=== PATIENT | female | born 1985 | race Caucasian/White ===

== ENCOUNTER 2017-03-25 07:49 | Inpatient (IN) | payer MEDICARE, MEDICAID ==
[2017-03-25] MEDS ORDERED: Buffered Lidocaine 0.9% SYRIN* 5 ML/SYR SYRINGE ONE (08:18)
[2017-03-25 09:54] LABS: Hematocrit 36 % (35-47); Hemoglobin 12.2 g/dl (12.0-16.0); Mean Corpuscular HGB Conc 34 g/dl (31-36); Mean Corpuscular Hemoglobin 31 pg (27-31); Mean Corpuscular Volume 90 fL (80-97); Mean Platelet Volume 10 um3 (7.4-10.4); Red Blood Count 3.99 10^6/ul (4.0-5.4); Red Cell Distribution Width 15 % (10.5-15); White Blood Count 11.8 10^3/ul (3.5-10.8)
[2017-03-25] MEDS ORDERED: OBEPIDURAL* 250 ML ONE (10:09)
[2017-03-25] MEDS ORDERED: Phenylephrine IV* 40 MCG/ML 10 ML SYRINGE IV PUSH PRN ×2 (11:56)
[2017-03-25] MEDS ORDERED: Sodium Citrate/Citric Acid* 15 ML UDC PO PRN (11:56)
[2017-03-25] MEDS ORDERED: Famotidine TAB* 20 MG PO PRN (11:56)
[2017-03-25] MEDS ORDERED: EPHEDrine (Pressors)* 50 MG/ML VIAL IV PUSH PRN ×2 (11:56)
[2017-03-25] MEDS ORDERED: OBEPIDURAL* 250 ML EPIDURAL SCH (12:00)
[2017-03-25 13:04] LABS: Benzodiazepine Urine Screen None Detected (None Detect)
[2017-03-25] MEDS ORDERED: Oxytocin in LR* 20 UNITS/1,000 ML BAG IVPB ONE (14:04)
[2017-03-25] MEDS ORDERED: Acetaminophen TAB* 325 MG PO PRN (14:49)
[2017-03-25] MEDS ORDERED: Dibucaine 1% 28.35 GM TUBE PR PRN (14:49)
[2017-03-25] MEDS ORDERED: Witch Hazel PAD* JAR TOPICAL PRN (14:49)
[2017-03-25] MEDS ORDERED: Glycerin ADULT SUPP PR PRN (14:49)
[2017-03-25] MEDS ORDERED: Ibuprofen TAB* 600 MG PO PRN (14:49)
[2017-03-25] MEDS ORDERED: Oxytocin in LR* 20 UNITS/1,000 ML BAG IVPB SCH (15:00)
[2017-03-25] MEDS ORDERED: Simethicone TAB* 80 MG TAB.CHEW PO SCH (17:30)
[2017-03-25] MEDS: Montelukast Sodium TAB* 10 MG PO SCH ×2 (20:38→21:17)
[2017-03-25] MEDS: Docusate CAP* 100 MG PO SCH (20:38)
[2017-03-25] MEDS: Mometasone/Formoter 200/5 MDI INH SCH (21:17)
[2017-03-26 07:45] LABS: Hematocrit 32 % (35-47); Hemoglobin 10.9 g/dl (12.0-16.0); Mean Corpuscular HGB Conc 34 g/dl (31-36); Mean Corpuscular Hemoglobin 31 pg (27-31); Mean Corpuscular Volume 90 fL (80-97); Mean Platelet Volume 9 um3 (7.4-10.4); Red Blood Count 3.55 10^6/ul (4.0-5.4); Red Cell Distribution Width 15 % (10.5-15); White Blood Count 9.5 10^3/ul (3.5-10.8)
[2017-03-26] MEDS: Montelukast Sodium TAB* 10 MG PO SCH ×2 (08:51→22:33)
[2017-03-26] MEDS: Docusate CAP* 100 MG PO SCH ×3 (08:51→22:33)
[2017-03-26] MEDS: Ferrous Gluconate TAB* 324 MG TAB PO SCH ×2 (09:00→22:34)
[2017-03-26] MEDS: Mometasone/Formoter 200/5 MDI INH SCH (14:40)
[2017-03-27 08:37] VITALS: BP 120/69
[2017-03-27] MEDS: Docusate CAP* 100 MG PO SCH (09:05)
[2017-03-27] MEDS: Montelukast Sodium TAB* 10 MG PO SCH (09:05)
== END 2017-03-27 16:56 | disposition home or self-care (01) | DRG 775 ==
LOC: MCHOBOUT 07:49 → MCHOB 08:12
PROVIDERS: ADMIT Obstetrics & Gynecology; ATTEND Obstetrics & Gynecology
PROC: 10E0XZZ Delivery of Products of Conception, External Approach (ICD-10-PCS; principal; 2017-03-25)
PROC: 0KQM0ZZ Repair Perineum Muscle, Open Approach (ICD-10-PCS; 2017-03-25)
PROC: 10907ZC Drainage of Amniotic Fluid, Therapeutic from Products of Conception, Via Natural or Artificial Opening (ICD-10-PCS; 2017-03-25)
PROC: 4A1HXCZ Monitoring of Products of Conception, Cardiac Rate, External Approach (ICD-10-PCS; 2017-03-25)
PROC: 10H073Z Insertion of Monitoring Electrode into Products of Conception, Via Natural or Artificial Opening (ICD-10-PCS; 2017-03-25)
PROC: 4A1H7CZ Monitoring of Products of Conception, Cardiac Rate, Via Natural or Artificial Opening (ICD-10-PCS; 2017-03-25)
DX: O48.0 Post-term pregnancy (principal); J45.909 Unspecified asthma, uncomplicated; Z37.0 Single live birth; Z3A.41 41 weeks gestation of pregnancy; O99.824 Streptococcus B carrier state complicating childbirth; O99.52 Diseases of the respiratory system complicating childbirth; Z88.1 Allergy status to other antibiotic agents; O69.1XX0 Labor and delivery complicated by cord around neck, with compression, not applicable or unspecified; O70.1 Second degree perineal laceration during delivery; O76 Abnormality in fetal heart rate and rhythm complicating labor and delivery
CPT/HCPCS: 36415; 80307; 82947; 85025; 86850; 86900; 86901; 99213; A9270-GY; G0463; J2540

== ENCOUNTER 2017-04-06 21:26 | Emergency (ER) | payer MEDICAID, MEDICARE ==
[2017-04-06] MEDS ORDERED: Albuterol/Ipratropium NEB.SOL* Albuterol 2.5 MG/Ipratropium 0.5 MG 3 ML INH ONE ×4 (22:17→22:58)
[2017-04-06] MEDS ORDERED: predniSONE TAB* 20 MG PO ONE ×2 (22:58)
--- NOTE | 2017-04-07 01:03 | ED ---
Dioni Sy Thomas, scribed for Moris Betancourt MD on 04/06/17 at 2302 . Shortness of Breath - HPI Summary HPI Summary: The pt is a 31 y/o F with a Hx of asthma presenting to the ED c/o SOB that began today at 12:00. The SOB is aggravated and alleviated by nothing. The patient has treated the SOB with her inhaler and nebulizer at home, which did relieve SOB somewhat. Pt additionally c/o clear rhinorrhea. Pt denies fevers, chills, and ankle swelling. The patient gave 12 days ago and she is accompanied by her mother and child. Her last asthma exacerbation was 2-3 years ago. She does not need to use her inhaler daily, but her she did use it yesterday. She has not taken prednisone for prior asthma exacerbations. She is breast-feeding. - History of Current Complaint Chief Complaint: EDShortnessOfBreath Time Seen by Provider: 04/06/17 22:17 Hx Obtained From: Patient, Family/Panel Monitor - pt's mother and pt's child are in the room Onset/Duration: Lasting Hours - onset today at 12:00, Still Present Timing: Constant Current Severity: Mild Associated Signs & Symptoms: Negative - Negative except for clear rhinorrhea - Allergy/Home Medications Allergies/Adverse Reactions: Allergies Allergy/AdvReac Type Severity Reaction Status Date / Time Clindamycin Allergy Severe See Comment Verified 04/06/17 21:34 Moxifloxacin [From Avelox] Allergy Severe Rash Verified 04/06/17 21:34 PMH/Surg Hx/FS Hx/Imm Hx Previously Healthy: No Endocrine/Hematology History: Denies: Hx Anticoagulant Therapy, Hx Diabetes, Hx Thyroid Disease Cardiovascular History: Denies: Hx Hypertension - family hx of Respiratory History: Reports: Hx Asthma - Allergies/asthma, Hx Pneumonia, Hx Seasonal Allergies Denies: Hx Chronic Obstructive Pulmonary Disease (COPD) GI History: Denies: Hx Ulcer Musculoskeletal History: Reports: Hx Arthritis - left hand Sensory History: Reports: Hx Contacts or Glasses Opthamlomology History: Reports: Hx Contacts or Glasses Neurological History: Reports: Hx Headaches Denies: Hx Migraine, Hx Nerve Disease, Hx Seizures Psychiatric History: Reports: Hx Attention Deficit Hyperactivity Disorder, Hx Bipolar Disorder - Cancer History Hx Chemotherapy: No Hx Radiation Therapy: No Hx Palliative Cancer Treatment: No - Surgical History Surgery Procedure, Year, and Place: S/p cholecystectomy, 2004, [facility] in [place] Hx Anesthesia Reactions: No Infectious Disease History: No Infectious Disease History: Denies: Hx Clostridium Difficile, Hx Hepatitis, Hx Human Immunodeficiency Virus (HIV), Hx of Known/Suspected MRSA, Hx Shingles, Hx Tuberculosis, Hx Known/ Suspected VRE, Hx Known/Suspected VRSA, History Other Infectious Disease, Traveled Outside the in Last 30 Days - Family History Known Family History: Positive: Other - Asthma - Social History Alcohol Use: None Hx Substance Use: No Substance Use Type: Reports: None Substance Use Comment - Amount & Last Used: frequently Hx Tobacco Use: No Smoking Status (MU): Never Smoked Tobacco Review of Systems Negative: Fever, Chills Positive: Nasal Discharge - clear Positive: Shortness Of Breath - onset today at 12:00 Negative: Other - NEGATIVE: ankle swelling All Other Systems Reviewed And Are Negative: Yes Physical Exam Triage Information Reviewed: Yes Vital Signs On Initial Exam: Initial Vitals Temp Pulse Resp BP Pulse Ox 97.2 F 110 20 133/77 95 04/06/17 21:29 04/06/17 21:29 04/06/17 21:29 04/06/17 21:29 04/06/17 21:29 Vital Signs Reviewed: Yes Appearance: Positive: Well-Appearing, No Pain Distress Skin: Positive: Warm, Skin Color Reflects Adequate Perfusion, Dry Head/Face: Positive: Normal Head/Face Inspection Eyes: Positive: EOMI, GARTH ENT: Positive: Normal ENT inspection Neck: Positive: Supple, Nontender Respiratory/Lung Sounds: Positive: Wheezes - bilaterally, Other - Mild respiratory distress Cardiovascular: Positive: Tachycardia, Other - Regular rhythm Abdomen Description: Positive: Nontender, Soft Bowel Sounds: Positive: Present Musculoskeletal: Positive: Normal, Strength/ROM Intact. Negative: Edema Left, Edema Right Neurological: Positive: Normal, Sensory/Motor Intact, Alert, Oriented to Person Place, Time Psychiatric: Positive: Affect/Mood Appropriate - José Coma Scale Coma Scale Total: 15 Diagnostics - Vital Signs Vital Signs Temp Pulse Resp BP Pulse Ox 04/06/17 22:27 98 15 97 04/06/17 21:29 97.2 F 110 20 133/77 95 - Laboratory Lab Statement: Any lab studies that have been ordered have been reviewed, and results considered in the medical decision making process. Course/Dx - Course Course Of Treatment: BP noted and advised to follow up with PCP. Medications reviewed. IMPROVED IN ED AFTER PREDNISONE 60MG PO AND DUO NEB X 2, WISHES TO GO HOME. DISCUSSED DELAYING BREAST FEEDING FOR 4 HOURS AFTER TAKING PREDNISONE. RETURN IF WORSE. - Diagnoses Provider Diagnoses: Asthma Discharge - Discharge Plan Condition: Stable Disposition: HOME Prescriptions: predniSONE TAB* [Deltasone TAB*] 40 mg PO DAILY #8 tab Patient Education Materials: Asthma (ED) Referrals: Nadira Corcoran MD [Primary Care Provider] - Additional Instructions: FOLLOW UP WITH YOUR DOCTOR. WAIT 4 HOURS AFTER TAKING PREDNISONE BEFORE BREAST FEEDING. RETURN TO THE EMERGENCY DEPARTMENT FOR ANY WORSENING OF YOUR CONDITION; FEVER, SHORTNESS OF BREATH, YOU FEEL ILL OR QUESTIONS OR CONCERNS. The documentation as recorded by the Dioni cochran Thomas accurately reflects the service I personally performed and the decisions made by me, Moris Betancourt MD.
[2017-04-07 01:10] VITALS: BP 127/75
== END 2017-04-07 01:14 | disposition home or self-care (01) ==
LOC: ED 21:26
DX: J45.909 Unspecified asthma, uncomplicated (principal); R06.02 Shortness of breath
CPT/HCPCS: 94640; 99282; A9270-GY; J7512

== ENCOUNTER 2018-01-30 10:36 | Emergency (ER) | payer MEDICARE, MEDICAID ==
--- NOTE | 2018-01-30 11:03 | ED ---
Complex/Multi-Sys Presentation - HPI Summary HPI Summary: This is sammie Russell documenting for attending Felice Hess M.D. Patient is a 32 y/o F w/ c/o SOB. She has Hx of asthma. She reports that she has been sick with a URI for the past week but notes that in the last three days SOB has worsened. Patient also notes onset of a cough which produces greenish-yellow phlegm three days ago as well. She denies fever, chills, sore throat, nasal congestion, chest pain, palpations, N/V/D. On triage, pain is denied and it is noted that exertion worsens Sx with nothing alleviating. Patient has PSHx of hernia repair and cholecystectomy. Home medications and allergies are noted. - History Of Current Complaint Chief Complaint: EDShortnessOfBreath Hx Obtained From: Patient Onset/Duration: Lasting Days - SOB/productive cough onset 3 days ago Timing: Constant Severity Currently: None - pain is denied Aggravating Factor(s): exertion Alleviating Factor(s): nothing Associated Signs And Symptoms: Positive: SOB, Cough - productive, greenish- yellow phelgm, Other - NEGATIVE: sore throat, nasal congestion, fever, chills. Negative: Chest Pain, Palpitations, Nausea, Vomiting, Diarrhea - Allergies/Home Medications Allergies/Adverse Reactions: Allergies Allergy/AdvReac Type Severity Reaction Status Date / Time clindamycin Allergy Anaphylatic Verified 01/30/18 10:47 Shock moxifloxacin Allergy Anaphylatic Verified 01/30/18 10:47 Shock Home Medications: Home Medications Amphetamine MIXED SALTS TAB* [Adderall TAB*] 30 mg PO BID 01/30/18 [History Confirmed 01/30/18] Mometasone/Formoter 100/5 MDI* [Dulera 100/5 MDI*] 1 puff INH BID 01/30/18 [ History Confirmed 01/30/18] Montelukast Sodium TAB* [Singulair 10 MG TAB*] 10 mg PO DAILY 01/30/18 [History Confirmed 01/30/18] Theophylline TAB* [Balwinder Dur 300 MG*] 450 mg PO BID 01/30/18 [History Confirmed 01/30/18] PMH/Surg Hx/FS Hx/Imm Hx Endocrine/Hematology History: Denies: Hx Anticoagulant Therapy, Hx Diabetes, Hx Thyroid Disease Cardiovascular History: Denies: Hx Hypertension - family hx of Respiratory History: Reports: Hx Asthma - Allergies/asthma, Hx Pneumonia, Hx Seasonal Allergies Denies: Hx Chronic Obstructive Pulmonary Disease (COPD) GI History: Denies: Hx Ulcer Musculoskeletal History: Reports: Hx Arthritis - left hand Sensory History: Reports: Hx Contacts or Glasses Opthamlomology History: Reports: Hx Contacts or Glasses Neurological History: Reports: Hx Headaches Denies: Hx Migraine, Hx Nerve Disease, Hx Seizures Psychiatric History: Reports: Hx Attention Deficit Hyperactivity Disorder, Hx Bipolar Disorder - Cancer History Hx Chemotherapy: No Hx Radiation Therapy: No Hx Palliative Cancer Treatment: No - Surgical History Surgery Procedure, Year, and Place: S/p cholecystectomy, 2004, [facility] in [place] Hx Anesthesia Reactions: No Infectious Disease History: No Infectious Disease History: Denies: Hx Clostridium Difficile, Hx Hepatitis, Hx Human Immunodeficiency Virus (HIV), Hx of Known/Suspected MRSA, Hx Shingles, Hx Tuberculosis, Hx Known/ Suspected VRE, Hx Known/Suspected VRSA, History Other Infectious Disease, Traveled Outside the in Last 30 Days - Family History Known Family History: Positive: Other - Asthma - Social History Alcohol Use: None Hx Substance Use: No Substance Use Type: Reports: None Substance Use Comment - Amount & Last Used: frequently Hx Tobacco Use: No Smoking Status (MU): Never Smoked Tobacco Review of Systems Negative: Fever, Chills Positive: Other - NEGATIVE: nasal congestion . Negative: Sore Throat Negative: Palpitations, Chest Pain Positive: Shortness Of Breath, Cough - productive, greenish-yellow phelgm Negative: Abdominal Pain, Vomiting, Diarrhea All Other Systems Reviewed And Are Negative: Yes Physical Exam - Summary Physical Exam Summary: GENERAL: Patient is a well developed and nourished female with some distress secondary to the shortness of breath. However, --- is able to speak in full sentences. HEAD AND FACE: Normocephalic and atraumatic. EYES: PERRLA, EOMI x 2, No injected conjunctiva. EARS: Hearing grossly intact. Ear canals and tympanic membranes WNL MOUTH: Dry oral mucosa. NECK: Supple, trachea is midline, no adenopathy, no JVD, no carotid bruit. CHEST: Symmetric, No intercostal or abdominal retraction, LUNGS: Diffuse bilateral wheezing and decreased breath sounds.No crackles. CVS: RRR,, S1 and S2 present, no murmurs or gallops appreciated. ABDOMEN: Soft, non-tender. No signs of distention. Positive BS. No rebound, no guarding, and no masses palpated. EXTREMITIES: FROM in all major joints, no edema, no cyanosis or clubbing. NEURO: Alert and oriented x 3. No acute neurological deficits. Speech is normal and follows commands. SKIN: Dry and warm Triage Information Reviewed: Yes Vital Signs On Initial Exam: Initial Vitals Temp Pulse Resp BP Pulse Ox 97.5 F 96 24 119/74 97 01/30/18 10:44 01/30/18 10:44 01/30/18 10:44 01/30/18 10:44 01/30/18 10:44 Vital Signs Reviewed: Yes Diagnostics - Vital Signs Vital Signs Temp Pulse Resp BP Pulse Ox 01/30/18 10:44 97.5 F 96 24 119/74 97 - Laboratory Result Diagrams: 01/30/18 11:12 01/30/18 11:12 Lab Statement: Any lab studies that have been ordered have been reviewed, and results considered in the medical decision making process. - Radiology CXR Xray Interpretation: No Acute Changes Radiology Interpretation Completed By: Radiologist - No active cardiopulmonary disease. - EKG 1115 Cardiac Rate: NL - Rate of 95 BPM EKG Rhythm: Sinus Rhythm EKG Interpretation: no ST elevation, normal axis Re-Evaluation - Re-Evaluation First Eval Re-Evaluation Time: 12:48 Change: Improved Comment: Discussed labs, test results and treatment. Patient was informed they will be discharged to home. Complex Multi-Symp Course/Dx Assessment/Plan: This patient is a 32-year-old female who presents to the emergency department complaining that the patient is having shortness of breath. The patient reports that she has history of asthma and he seems that she is having an asthma exacerbation. Patient also reports an upper respiratory tract infection for the last couple days which she thinks he triggered the asthma. She has productive cough with yellowish phlegm, she denies any fever or chills she denies any chest pain or palpitations. In the ED course the patient was started with IV fluids, she was given duonebs and Solu -Medrol. Blood test results without any significant abnormality except for CRP of 15.3. Chest x-ray impression: No acute pulmonary disease. The patient was given DuoNeb and Solu-Medrol the patients symptoms have improved. Reexamination of the lungs, lungs are clear to auscultation bilaterally, there is no wheezing. Therefore, the patient will be discharged home with follow-up with primary care physician. The patient will be given a prescription for prednisone by mouth for 4 days. Discussed all the test results and findings with the patient and the need to follow-up with PCP in the next couple days. The patient understands and agrees. The patients questions were answered and is no further concerns. - Diagnoses Provider Diagnoses: Asthma exacerbation Discharge - Sign-Out/Discharge Documenting (check all that apply): Patient Departure - discharge - Discharge Plan Condition: Stable Disposition: HOME Prescriptions: Albuterol HFA INHALER* [Ventolin HFA Inhaler*] 2 puff INH Q6H PRN #1 mdi PRN Reason: Sob/Wheezing predniSONE [Prednisone 20 MG TAB] 20 mg PO DAILY #8 tablet Patient Education Materials: Asthma (ED) Referrals: Felice Chamberlain MD [Primary Care Provider] - 3 Days Additional Instructions: Return to ED for any new or worsening symptoms.
[2018-01-30] MEDS ORDERED: NS 0.9% 1000 ML* 1,000 ML IV ONE (11:04)
[2018-01-30] MEDS ORDERED: methylPREDNISolone 125 MG* 2 ML VIAL IV ONE (11:04)
[2018-01-30] MEDS: Albuterol/Ipratropium NEB.SOL* Albuterol 2.5 MG/Ipratropium 0.5 MG 3 ML INH SCH ×3 (11:15→12:08)
[2018-01-30 11:25] LABS: ABS Basophils 0 10^3/ul (0-0.2); ABS Eosinophils 0.4 10^3/ul (0-0.6); ABS Lymphocytes 1.4 10^3/ul (1.0-4.8); ABS Monocytes 0.3 10^3/ul (0-0.8); ABS Nucleated RBC 0 10^3/ul; Eosinophil % 6.9 % (0-6); Hematocrit 38 % (35-47); Hemoglobin 12.9 g/dl (12.0-16.0); Lymphocyte % 23.1 % (25-47); Mean Corpuscular HGB Conc 34 g/dl (31-36); Mean Corpuscular Hemoglobin 28 pg (27-31); Mean Corpuscular Volume 82 fL (80-97); Mean Platelet Volume 7.7 um3 (7.4-10.4); Nucleated Red Blood Cells % 0; Platelet Count 291 10^3/ul (150-450); Red Cell Distribution Width 13 % (10.5-15); White Blood Count 6.3 10^3/ul (3.5-10.8)
[2018-01-30 11:51] LABS: EGFR Non-African American 83.7 (>60)
--- NOTE | 2018-01-30 12:26 | RAD ---
HISTORY: SOB COMPARISONS: April 22, 2014 VIEWS: 4: Frontal dual-energy and lateral views of the chest. FINDINGS: CARDIOMEDIASTINAL SILHOUETTE: The cardiomediastinal silhouette is normal. LLOYD: The lloyd are normal. PLEURA: The costophrenic angles are sharp. No pleural abnormalities are noted. LUNG PARENCHYMA: The lungs are clear. ABDOMEN: The upper abdomen is clear. There is no subphrenic gas. BONES AND SOFT TISSUES: No bone or soft tissue abnormalities are noted. OTHER: None. IMPRESSION: NO ACTIVE CARDIOPULMONARY DISEASE.
[2018-01-30 13:47] VITALS: BP 108/66
== END 2018-01-30 13:46 | disposition home or self-care (01) ==
LOC: ED 10:36
DX: J45.901 Unspecified asthma with (acute) exacerbation (principal); Z88.3 Allergy status to other anti-infective agents
CPT/HCPCS: 36415; 71046; 80053; 83605; 83880; 84484; 85025; 86140; 87040; 93005; 96361; 96374; 99283; A9270-GY; J2930

== ENCOUNTER 2018-02-28 23:32 | Emergency (ER) | payer MEDICARE, MEDICAID ==
[2018-02-28] MEDS ORDERED: Ketorolac INJ* 30 MG/ML 1 ML VIAL IV PUSH ONE (23:44)
[2018-02-28] MEDS ORDERED: NS 0.9% 1000 ML* 1,000 ML IV ONE (23:49)
[2018-02-28] MEDS ORDERED: predniSONE TAB* 20 MG PO ONE (23:49)
[2018-02-28] MEDS ORDERED: Albuterol/Ipratropium NEB.SOL* Albuterol 2.5 MG/Ipratropium 0.5 MG 3 ML INH ONE (23:49)
--- NOTE | 2018-02-28 23:59 | ED ---
HPI Chest Pain - HPI Summary HPI Summary: Pt is a 32 year old female presenting to the ED with chest wall pain described as sharp and stabby, gives her SOB, and is worse with deep breaths. Pt has a hx of severe asthma, and about 2 months ago she came to the ED with pain in her lower R side and SOB. When she was here, the physician gave her prednisone and 3 tx before she left. Pt states she felt fine on prednisone, but the pain is now back and on her L side. Pt denies fevers, leg swelling, Fhx of lung disease , blood clots, early VA, and does not smoke. - History of Current Complaint Chief Complaint: EDChestWallPain Time Seen by Provider: 02/28/18 23:44 Hx Obtained From: Patient Hx Last Menstrual Period: 09/09/13 Onset/Duration: Started Days Ago, Still Present Timing: Constant Initial Severity: Mild Current Severity: Mild Pain Intensity: 3 Pain Scale Used: 0-10 Numeric Chest Pain Location: Left Lateral Chest Pain Radiates: No Character: Sharp/Stabbing Aggravating Factor(s): Deep Breaths Alleviating Factor(s): Rest Associated Signs and Symptoms: Positive: Shortness of Breath. Negative: Fever, Calf Pain/Swelling - Allergy/Home Medications Allergies/Adverse Reactions: Allergies Allergy/AdvReac Type Severity Reaction Status Date / Time clindamycin Allergy Anaphylatic Verified 01/30/18 10:47 Shock moxifloxacin Allergy Anaphylatic Verified 01/30/18 10:47 Shock PMH/Surg Hx/FS Hx/Imm Hx Previously Healthy: No Endocrine/Hematology History: Denies: Hx Anticoagulant Therapy, Hx Diabetes, Hx Thyroid Disease Cardiovascular History: Denies: Hx Hypertension - family hx of Respiratory History: Reports: Hx Asthma - Allergies/asthma, Hx Pneumonia, Hx Seasonal Allergies Denies: Hx Chronic Obstructive Pulmonary Disease (COPD) GI History: Denies: Hx Ulcer Musculoskeletal History: Reports: Hx Arthritis - left hand Sensory History: Reports: Hx Contacts or Glasses Opthamlomology History: Reports: Hx Contacts or Glasses Neurological History: Reports: Hx Headaches Denies: Hx Migraine, Hx Nerve Disease, Hx Seizures Psychiatric History: Reports: Hx Attention Deficit Hyperactivity Disorder, Hx Bipolar Disorder - Cancer History Hx Chemotherapy: No Hx Radiation Therapy: No Hx Palliative Cancer Treatment: No - Surgical History Surgery Procedure, Year, and Place: S/p cholecystectomy, 2004, [facility] in [place] Hx Anesthesia Reactions: No Infectious Disease History: No Infectious Disease History: Denies: Hx Clostridium Difficile, Hx Hepatitis, Hx Human Immunodeficiency Virus (HIV), Hx of Known/Suspected MRSA, Hx Shingles, Hx Tuberculosis, Hx Known/ Suspected VRE, Hx Known/Suspected VRSA, History Other Infectious Disease, Traveled Outside the [place] in Last 30 Days - Family History Known Family History: Positive: Other - Asthma Family History: negative: lung disease, blood clots, early VA - Social History Alcohol Use: None Hx Substance Use: No Substance Use Type: Reports: None Substance Use Comment - Amount & Last Used: frequently Hx Tobacco Use: No Smoking Status (MU): Never Smoked Tobacco Review of Systems Negative: Fever Positive: Shortness Of Breath Positive: Myalgia - L chest wall pain. Negative: Edema All Other Systems Reviewed And Are Negative: Yes Physical Exam - Summary Physical Exam Summary: Appearance: Well appearing, no pain distress Skin: warm, dry, reflects adequate perfusion Head/face: normal Eyes: EOMI, GARTH ENT: normal Neck: supple, non-tender Respiratory: no wheezes, very diminished breath sounds Cardiovascular: tachycardic with regular rhythm, pulses symmetrical Abdomen: non-tender, soft Bowel Sounds: present Musculoskeletal: normal, strength/ROM intact Neuro: normal, sensory motor intact, A&Ox3 Triage Information Reviewed: Yes Vital Signs On Initial Exam: Initial Vitals Temp Pulse Resp BP Pulse Ox 97.1 F 105 20 129/90 95 02/28/18 23:36 02/28/18 23:36 02/28/18 23:36 02/28/18 23:36 02/28/18 23:36 Vital Signs Reviewed: Yes Diagnostics - Vital Signs Vital Signs Temp Pulse Resp BP Pulse Ox 02/28/18 23:36 97.1 F 105 20 129/90 95 - Laboratory Result Diagrams: 02/28/18 23:55 02/28/18 23:55 Lab Statement: Any lab studies that have been ordered have been reviewed, and results considered in the medical decision making process. - Radiology CXR Xray Interpretation: No Acute Changes Radiology Interpretation Completed By: ED Physician - Results pending radiologist confirmation. Re-Evaluation - Re-Evaluation 0028 Change: Improved Comment: Breath sounds improved. Chest Pain Course/Dx - Course Course Of Treatment: Patient with history of asthma on controller medications with him and his breath sounds on arrival. O2 sats and work of breathing is normal. Breathing improved and aeration improved with breathing treatments. She is given steroids here. X-rays were negative and d-dimer was not detected. Laboratories otherwise benign. She is instructed to follow up closely with her primary care physician for reevaluation of her asthma regimen. She likely should see pulmonology especially given she is on theophylline. Her theophylline level today is low. - Chest Pain Differential Diagnosis/HQI/PQRI: Lower Respiratory Infection, Pulmonary Edema, Pulmonary Embolism, Other: - Asthma - Diagnoses Provider Diagnoses: Asthma exacerbation Discharge - Sign-Out/Discharge Documenting (check all that apply): Patient Departure - Discharge Plan Condition: Stable Disposition: HOME Prescriptions: predniSONE TAB* [Deltasone TAB*] 50 mg PO DAILY #5 tab Patient Education Materials: Asthma (ED) Referrals: Felice Chamberlain MD [Primary Care Provider] - Additional Instructions: Theophylline level will take some time to come back. Call your doctor first thing in the morning to schedule follow-up appointment. You will likely need additional medication added to your asthma regimen. Return if worse, new symptoms or other concerns as discussed. - Billing Disposition and Condition Condition: STABLE Disposition: Home - Attestation Statements Document Initiated by Scribe: Yes Documenting Scribe: Shreya Henderson Provider For Whom Salas is Documenting (Include Credential): James Jansen MD. Scribe Attestation: Shreya Sy, vadimed for James Jansen MD. on 03/01/18 at 0432. Scribe Documentation Reviewed: Yes Provider Attestation: The documentation as recorded by the scribeShreya accurately reflects the service I personally performed and the decisions made by , James Jansen MD.
[2018-03-01 00:11] LABS: ABS Basophils 0.1 10^3/ul (0-0.2); ABS Eosinophils 0.4 10^3/ul (0-0.6); ABS Lymphocytes 2.1 10^3/ul (1.0-4.8); ABS Monocytes 0.5 10^3/ul (0-0.8); ABS Neutrophils 4.6 10^3/ul (1.5-7.7); ABS Nucleated RBC 0 10^3/ul; Eosinophil % 5.7 % (0-6); Hematocrit 37 % (35-47); Hemoglobin 12.3 g/dl (12.0-16.0); Lymphocyte % 26.6 % (25-47); Mean Corpuscular HGB Conc 33 g/dl (31-36); Mean Corpuscular Hemoglobin 28 pg (27-31); Mean Corpuscular Volume 83 fL (80-97); Mean Platelet Volume 7.9 um3 (7.4-10.4); Nucleated Red Blood Cells % 0; Platelet Count 306 10^3/ul (150-450); Red Blood Count 4.45 10^6/ul (4.00-5.40); Red Cell Distribution Width 14 % (10.5-15); White Blood Count 7.7 10^3/ul (3.5-10.8)
[2018-03-01 00:25] LABS: EGFR Non-African American 59.8 (>60)
[2018-03-01 00:45] VITALS: BP 125/76
--- NOTE | 2018-03-01 08:11 | RAD ---
INDICATION: Cough. Chest pain COMPARISON: January 30, 2018 TECHNIQUE: PA and lateral dual-energy views were obtained. FINDINGS: Bones/Soft Tissues: There are no acute bony findings. Cardiomediastinal: The cardiomediastinal silhouette is normal. Lungs: There are no infiltrates. Pleura: There are no pleural effusions. Other: None IMPRESSION: NEGATIVE EXAMINATION. R0
== END 2018-03-01 00:43 | disposition home or self-care (01) ==
LOC: ED 23:32
DX: J45.901 Unspecified asthma with (acute) exacerbation (principal); R06.02 Shortness of breath
CPT/HCPCS: 36415; 71046; 80048; 80198; 84702; 85025; 85379; 96374; 99283; A9270-GY; J1885; J7512

== ENCOUNTER 2018-04-02 20:19 | Emergency (ER) | payer MEDICARE, MEDICAID ==
--- NOTE | 2018-04-03 14:46 | UC ---
- Progress Note Progress Note: LWBS. NO IMAGING Discharge - Sign-Out/Discharge Documenting (check all that apply): Post-Discharge Follow Up All imaging exams completed and their final reports reviewed: No Studies - Discharge Plan Condition: Stable Disposition: LEFT WITHOUT BEING SEEN Referrals: Felice Chamberlain MD [Primary Care Provider] - - Billing Disposition and Condition Condition: STABLE Disposition: Left Without Being Seen
== END 2018-04-02 20:40 | disposition left against medical advice (07) ==
LOC: UCEAST 20:19
DX: N93.9 Abnormal uterine and vaginal bleeding, unspecified (principal); R10.9 Unspecified abdominal pain; Z53.21 Procedure and treatment not carried out due to patient leaving prior to being seen by health care provider

== ENCOUNTER → 2018-07-30 16:00 | Emergency (ER) | payer MEDICARE, MEDICAID ==
[~2018-07-30 16:00] MED LIST: predniSONE TAB* 20 MG PO ONE
[2018-07-30 16:06] VITALS: BP 105/74
== END | disposition left against medical advice (07) ==
LOC: ED 16:00
DX: R06.02 Shortness of breath (principal); Z53.21 Procedure and treatment not carried out due to patient leaving prior to being seen by health care provider

== ENCOUNTER → 2018-08-05 11:58 | Emergency (ER) | payer MEDICARE, MEDICAID ==
[~2018-08-05 11:58] MED LIST changes: +Albuterol/Ipratropium NEB.SOL* Albuterol 2.5 MG/Ipratropium 0.5 MG 3 ML ONE; +methylPREDNISolone 125 MG* 2 ML VIAL IV ONE; -predniSONE TAB* 20 MG PO ONE
--- NOTE | 2018-08-05 12:18 | ED ---
Respiratory - HPI Summary HPI Summary: A 33 y/o female presents to the ED c/o current asthma attack. The patient stated that the asthma attack started this morning. She took her inhaler and 2 nebulizers, but nothing has helped. Patient has cough, back pain, chest pain, but denies fever. Patient is a non-smoker. Patient looks worried. - History of Current Complaint Stated Complaint: SOB Time Seen by Provider: 08/05/18 12:13 Hx Obtained From: Patient Onset/Duration: Sudden Onset, Lasting Hours, Still Present Current Severity: None Pain Intensity: 0 Character: Cough (Nonproductive), Dyspnea at Rest Sputum Amount: None Aggravating Factor(s): Nothing Alleviating Factor(s): Nothing Associated Signs and Symptoms: SOB, Chest Pain, Chest Pain with Cough, Dyspnea - Allergy/Home Medications Allergies/Adverse Reactions: Allergies Allergy/AdvReac Type Severity Reaction Status Date / Time clindamycin Allergy Anaphylatic Verified 07/30/18 16:06 Shock moxifloxacin Allergy Anaphylatic Verified 07/30/18 16:06 Shock Home Medications: Home Medications Theophylline Anhydrous 450 mg PO BID 08/05/18 [History Confirmed 08/05/18] PMH/Surg Hx/FS Hx/Imm Hx Endocrine/Hematology History: Denies: Hx Anticoagulant Therapy, Hx Diabetes, Hx Thyroid Disease Cardiovascular History: Denies: Hx Hypertension - family hx of Respiratory History: Reports: Hx Asthma - Allergies/asthma, Hx Pneumonia, Hx Seasonal Allergies Denies: Hx Chronic Obstructive Pulmonary Disease (COPD) GI History: Denies: Hx Ulcer Musculoskeletal History: Reports: Hx Arthritis - left hand Sensory History: Reports: Hx Contacts or Glasses Opthamlomology History: Reports: Hx Contacts or Glasses Neurological History: Reports: Hx Headaches Denies: Hx Migraine, Hx Nerve Disease, Hx Seizures Psychiatric History: Reports: Hx Attention Deficit Hyperactivity Disorder, Hx Bipolar Disorder - Cancer History Hx Chemotherapy: No Hx Radiation Therapy: No Hx Palliative Cancer Treatment: No - Surgical History Surgery Procedure, Year, and Place: S/p cholecystectomy, 2004, [facility] in [place] Hx Anesthesia Reactions: No Infectious Disease History: Unable to Obtain/Confirm Infectious Disease History: Denies: Hx Clostridium Difficile, Hx Hepatitis, Hx Human Immunodeficiency Virus (HIV), Hx of Known/Suspected MRSA, Hx Shingles, Hx Tuberculosis, Hx Known/ Suspected VRE, Hx Known/Suspected VRSA, History Other Infectious Disease, Traveled Outside the [place] in Last 30 Days - Family History Known Family History: Positive: Hypertension, Diabetes Negative: Cardiac Disease - [place], Respiratory Disease, Blood Disorder - blood clots - Social History Alcohol Use: None Hx Substance Use: No Substance Use Type: Reports: None Substance Use Comment - Amount & Last Used: frequently Hx Tobacco Use: No Smoking Status (MU): Never Smoked Tobacco Review of Systems Negative: Fever Positive: Chest Pain Positive: Shortness Of Breath, Cough Positive: Other - POSITIVE: BACK PAIN All Other Systems Reviewed And Are Negative: Yes Physical Exam - Summary Physical Exam Summary: VITAL SIGNS: Reviewed. GENERAL: Patient is a well-developed and nourished female who is lying comfortable in the stretcher. Mild respiratory distress. HEAD AND FACE: No signs of trauma. No ecchymosis, hematomas or skull depressions. No sinus tenderness. EYES: PERRLA, EOMI x 2, No injected conjunctiva, no nystagmus. EARS: Hearing grossly intact. Ear canals and tympanic membranes are within normal limits. MOUTH: Oropharynx within normal limits. NECK: Supple, trachea is midline, no adenopathy, no JVD, no carotid bruit, no c- spine tenderness, neck with full ROM. CHEST: Symmetric, no tenderness at palpation LUNGS: Bilateral diffuse wheezing, decreased breath sounds, able to speak in full sentences. CVS: Regular rate and rhythm, S1 and S2 present, no murmurs or gallops appreciated. ABDOMEN: Soft, non-tender. No signs of distention. No rebound no guarding, and no masses palpated. Bowel sounds are normal. EXTREMITIES: FROM in all major joints, no edema, no cyanosis or clubbing. NEURO: Alert and oriented x 3. No acute neurological deficits. Speech is normal and follows commands. SKIN: Dry and warm Triage Information Reviewed: Yes Vital Signs On Initial Exam: Initial Vitals Temp Pulse Resp BP Pulse Ox 98.9 F 172 32 121/87 96 08/05/18 12:13 08/05/18 12:13 08/05/18 12:13 08/05/18 12:13 08/05/18 12:13 Vital Signs Reviewed: Yes Diagnostics - Vital Signs Vital Signs Temp Pulse Resp BP Pulse Ox 08/05/18 12:13 98.9 F 172 32 121/87 96 - Laboratory Result Diagrams: 08/05/18 11:41 08/05/18 11:41 Lab Statement: Any lab studies that have been ordered have been reviewed, and results considered in the medical decision making process. - Radiology CXR Radiology Interpretation Completed By: Radiologist Summary of Radiographic Findings: NO EVIDENCE FOR ACUTE DISEASE. ED PHYSICIAN REVIEWED THIS RADIOLOGY REPORT. - EKG 1218 Cardiac Rate: Tachycardia - 122 BPM EKG Rhythm: Sinus Tachycardia - 122 BPM Summary of EKG Findings: NO ST ELEVATIONS Disposition - Course Course Of Treatment: A 33 y/o female presents to the ED c/o current asthma attack. The patient stated that the asthma attack started this morning. She took her inhaler and 2 nebulizers, but nothing has helped. Patient has cough, back pain, chest pain, but denies fever. Patient is a non-smoker. Patient looks worried. Assessment/Plan: Blood work without any significant abnormality except for alkaline phosphatase of 111 and CRP of 12.5. Albumin is 3.1. Chest x-ray impression: No acute pathology. EKG showed sinus tachycardia. In the ED course and the patient was given Duonebs and Solu-Medrol for the asthma exacerbation. After she was given 3 Duonebs and her symptoms improved. In reexamination of the lungs does appear to auscultation bilaterally. The patient s tachycardica of 101 to 105 bpm probably secondary to taking the albuterol. The patient is able to speak in full sentences, she feels better sitting, ambulating and she is not short of breath. Therefore the patient will be discharged home with follow-up with PCP. I discussed all the findings and test results with the patient. Patient was instructed to return to the emergency room immediately if any of the symptoms return or worsens. Plan of care was discussed with the patient and understands and agrees. All questions were answered at patient satisfaction. There were no further complaints or concerns. Lung exam before discharge: CTA B/L. Good air exchange. No wheezing or crackles heard. CVS: S1 and S2 present. No murmurs appreciated. Patient is alert and oriented x 3. Patient is hemodynamically stable. Patient will be discharged home with follow up PCP in the next 2-3 days - Differential Dx - Cardiopulmonary Differential Diagnoses - Cardiopulmonary: Lower Resp Infection, Other - Asthma - Diagnoses Provider Diagnoses: Asthma exacerbation Discharge - Sign-Out/Discharge Documenting (check all that apply): Patient Departure - DISCHARGE - Discharge Plan Condition: Improved Disposition: HOME Prescriptions: Albuterol/Ipratropium NEB.KEL* [Duoneb (Albuterol 2.5 MG/Ipratropium 0.5 MG)] 1 neb INH Q4H PRN #1 box PRN Reason: Shortness Of Breath predniSONE TAB* [Deltasone 20 MG TAB*] 40 mg PO DAILY #8 tab Patient Education Materials: Asthma (ED) Forms: *Work Release Referrals: Felice Chamberlain MD [Primary Care Provider] - Additional Instructions: FOLLOW UP WITH PRIMARY CARE PROVIDER IN 3 DAYS. FOLLOW UP WITH YOUR PRIMARY CARE PROVIDER WITHIN ONE WEEK FOR HIGH BLOOD PRESSURE NOTED TODAY. RETURN TO ED FOR ANY NEW OR WORSENING SYMPTOMS. - Billing Disposition and Condition Condition: IMPROVED Disposition: Home - Attestation Statements Document Initiated by Salas: Yes Documenting Scribe: Eliseo De Anda Provider For Whom Salas is Documenting (Include Credential): Felice Hess MD Scribe Attestation: Eliseo Sy scribed for Felice Hess MD on 08/05/18 at 1851. Scribe Documentation Reviewed: Yes Provider Attestation: The documentation as recorded by the Eliseo cochran accurately reflects the service I personally performed and the decisions made by , Felice Hess MD Status of Scribe Document: Viewed Attestations Scribe Attestation: Eliseo De Anda User Type: Provider
[2018-08-05] MEDS: Albuterol/Ipratropium NEB.SOL* Albuterol 2.5 MG/Ipratropium 0.5 MG 3 ML INH SCH ×2 (12:27→13:08)
[2018-08-05 12:40] LABS: ABS Basophils 0.1 10^3/ul (0-0.2); ABS Eosinophils 0.3 10^3/ul (0-0.6); ABS Lymphocytes 1.3 10^3/ul (1.0-4.8); ABS Monocytes 0.5 10^3/ul (0-0.8); ABS Neutrophils 4.2 10^3/ul (1.5-7.7); ABS Nucleated RBC 0 10^3/ul; Eosinophil % 4.5 %; Hematocrit 38 % (35-47); Hemoglobin 12.1 g/dl (12.0-16.0); Lymphocyte % 20.4 %; Mean Corpuscular HGB Conc 32 g/dl (31-36); Mean Corpuscular Hemoglobin 26 pg (27-31); Mean Corpuscular Volume 80 fL (80-97); Mean Platelet Volume 8.4 fL (7.4-10.4); Nucleated Red Blood Cells % 0; Platelet Count 284 10^3/ul (150-450); Red Blood Count 4.69 10^6/ul (4.00-5.40); Red Cell Distribution Width 14 % (10.5-15); White Blood Count 6.3 10^3/ul (3.5-10.8)
[2018-08-05 13:02] LABS: Albumin 3.1 g/dL (3.2-5.2); Albumin/Globulin Ratio 0.8 (1-3); BUN/Creatinine Ratio 13.3 (8-20); C Reactive Protein 12.55 mg/L (<8.01); Calcium 8.7 mg/dL (8.6-10.3); EGFR African American 96.4 (>60); EGFR Non-African American 79.7 (>60); Globulin 3.9 g/dL (2-4); Potassium 3.8 mmol/L (3.5-5.0); Total Bilirubin 0.4 mg/dL (0.2-1.0)
[2018-08-05 13:06] LABS: HCG Pregnancy 0.98 mIU/mL
[2018-08-05 15:29] VITALS: BP 113/64
== END | disposition home or self-care (01) ==
LOC: ED 11:58
DX: J45.901 Unspecified asthma with (acute) exacerbation (principal); F90.9 Attention-deficit hyperactivity disorder, unspecified type; F31.9 Bipolar disorder, unspecified
CPT/HCPCS: 36415; 71045; 80053; 82550; 83605; 83880; 84484; 84702; 85025; 86140; 93005; 96374; 99283; A9270-GY; J2930

== ENCOUNTER 2018-08-09 21:07 | Emergency (ER) | payer MEDICAID, MEDICARE ==
[2018-08-09] MEDS ORDERED: methylPREDNISolone 125 MG* 2 ML VIAL IV ONE (21:43)
--- NOTE | 2018-08-09 21:47 | ED ---
Shortness of Breath - HPI Summary HPI Summary: A 33 y/o female presents to [facility] with a chief complaint of SOB since 08/06/18 worsening on 08/09/18. The patient has a Hx of asthma but no prior intubations. She 20 mg prednisone daily prescribed by Dr. Hess. She has been having wheezing since 08/06/18 but it has not improved. She also reports a nonproductive cough. She denies fever, chills, erythema (eyes), sore throat, chest pain, abdominal pain, vomiting, nausea, dysuria, hematuria , myalgia, edema, rash and dizziness. At triage she rated her pain as a 0/10 in severity. - History of Current Complaint Chief Complaint: EDAsthma Time Seen by Provider: 08/09/18 21:42 Hx Obtained From: Patient Onset/Duration: Sudden Onset, Lasting Days, Still Present Timing: Constant Current Severity: Mild Dyspnea At: Rest Aggrevating Factors: Nothing Alleviating Factors: Nothing Associated Signs & Symptoms: Cough (Nonproductive) - Allergy/Home Medications Allergies/Adverse Reactions: Allergies Allergy/AdvReac Type Severity Reaction Status Date / Time clindamycin Allergy Anaphylatic Verified 08/09/18 21:17 Shock moxifloxacin Allergy Anaphylatic Verified 08/09/18 21:17 Shock PMH/Surg Hx/FS Hx/Imm Hx Endocrine/Hematology History: Denies: Hx Anticoagulant Therapy, Hx Diabetes, Hx Thyroid Disease Cardiovascular History: Denies: Hx Hypertension - family hx of Respiratory History: Reports: Hx Asthma - Allergies/asthma, Hx Pneumonia, Hx Seasonal Allergies Denies: Hx Chronic Obstructive Pulmonary Disease (COPD) GI History: Denies: Hx Ulcer Musculoskeletal History: Reports: Hx Arthritis - left hand Sensory History: Reports: Hx Contacts or Glasses Opthamlomology History: Reports: Hx Contacts or Glasses Neurological History: Reports: Hx Headaches Denies: Hx Migraine, Hx Nerve Disease, Hx Seizures Psychiatric History: Reports: Hx Attention Deficit Hyperactivity Disorder, Hx Bipolar Disorder - Cancer History Hx Chemotherapy: No Hx Radiation Therapy: No Hx Palliative Cancer Treatment: No - Surgical History Surgery Procedure, Year, and Place: S/p cholecystectomy, 2003, [facility] in [place] Hx Anesthesia Reactions: No Infectious Disease History: No Infectious Disease History: Denies: Hx Clostridium Difficile, Hx Hepatitis, Hx Human Immunodeficiency Virus (HIV), Hx of Known/Suspected MRSA, Hx Shingles, Hx Tuberculosis, Hx Known/ Suspected VRE, Hx Known/Suspected VRSA, History Other Infectious Disease, Traveled Outside the [place] in Last 30 Days - Family History Known Family History: Positive: Hypertension, Diabetes Negative: Cardiac Disease - [place], Respiratory Disease, Blood Disorder - blood clots - Social History Alcohol Use: None Hx Substance Use: No Substance Use Type: Reports: None Substance Use Comment - Amount & Last Used: frequently Hx Tobacco Use: No Smoking Status (MU): Never Smoked Tobacco Review of Systems Negative: Fever, Chills Negative: Erythema Negative: Sore Throat Negative: Chest Pain Positive: Shortness Of Breath, Cough Negative: Abdominal Pain, Vomiting, Nausea Negative: dysuria, hematuria Negative: Myalgia, Edema Negative: Rash Neurological: Negative - dizziness All Other Systems Reviewed And Are Negative: Yes Physical Exam - Summary Physical Exam Summary: Constitutional: Well-developed, Well-nourished, Alert. (-) Distressed Skin: Warm, Dry HENT: Normocephalic; Atraumatic Eyes: Conjunctiva normal Neck: Musculoskeletal ROM normal neck. (-) JVD, (-) Stridor, (-) Tracheal deviation Cardio: Rhythm regular, rate normal, Heart sounds normal; Intact distal pulses; The pedal pulses are 2+ and symmetric. Radial pulses are 2+ and symmetric. (-) Murmur Pulmonary/Chest wall: Effort normal. (-) Respiratory distress, (+) Inspiratory and Expiratory Wheezes, (-) Rales Abd: Soft, (-) epigastric tenderness, (-) Distension, (-) Guarding, (-) Rebound Musculoskeletal: (-) Edema Lymph: (-) Cervical adenopathy Neuro: Alert, Oriented x3 Psych: Mood and affect Normal Triage Information Reviewed: Yes Vital Signs On Initial Exam: Initial Vitals Temp Pulse Resp BP Pulse Ox 97.2 F 94 20 129/78 97 08/09/18 21:12 08/09/18 21:12 08/09/18 21:12 08/09/18 21:12 08/09/18 21:12 Vital Signs Reviewed: Yes Diagnostics - Vital Signs Vital Signs Temp Pulse Resp BP Pulse Ox 08/09/18 21:12 97.2 F 94 20 129/78 97 - Laboratory Lab Statement: Any lab studies that have been ordered have been reviewed, and results considered in the medical decision making process. Re-Evaluation - Re-Evaluation First Eval Re-Evaluation Time: 20:20 Change: Unchanged Comment: patient still experiencing SOB Course/Dx - Course Course Of Treatment: A 33 y/o female presents to [facility] with a chief complaint of SOB since 08/06/18 worsening on 08/09/18. The patient has a Hx of asthma but no prior intubations. She 20 mg prednisone daily prescribed by Dr. Hess. She has been having wheezing since 08/06/18 but it has not improved. She also reports a nonproductive cough. She denies fever, chills, erythema (eyes), sore throat, chest pain, abdominal pain, vomiting, nausea, dysuria, hematuria , myalgia, edema, rash and dizziness. At triage she rated her pain as a 0/10 in severity. The physical exam revealed inspiratory and expiratory wheezing. The plan is for IV steroids and back to back treatments of respiratory therapy. Oral steroids should be increased to 60 mg daily as she is already on inhaler steroids. She should have significant to near resolution of her symptoms before being allowed to go home due to her significant asthma history. The patient will be signed out to Dr. Hooper at 22:00 pending IV abx and respiratory therapy. - Diagnoses Provider Diagnoses: Asthma exacerbation Discharge - Sign-Out/Discharge Documenting (check all that apply): Sign-Out Patient Signing out patient TO: Girish Hoopre Patient Received Moderate/Deep Sedation with Procedure: No - Discharge Plan Condition: Stable Referrals: Felice Chamberlain MD [Primary Care Provider] - - Attestation Statements Document Initiated by Scribe: Yes Documenting Scribe: Jatin Gayle Provider For Whom Scribe is Documenting (Include Credential): Nadeem Oscar MD Scribe Attestation: Jatin Sy, scribed for Nadeem Oscar MD on 08/09/18 at 8679. Status of Scribe Document: Ready
[2018-08-09] MEDS ORDERED: Albuterol 0.5% CONC NEB.SOL* 5 MG/ML 20 ml BOT INH ONE (21:54)
[2018-08-09] MEDS ORDERED: Albuterol 0.5% CONC NEB.SOL* 5 MG/ML 20 ml BOT ONE (21:56)
[2018-08-09] MEDS ORDERED: Magnesium Sulfate 2 GM IV* 2 GM/50 ML BAG IVPB ONE (22:17)
[2018-08-09] MEDS ORDERED: cefTRIAXone(*) 1 GM in NS 0.9% 50 ML* 50 ML IVPB ONE (23:29)
--- NOTE | 2018-08-09 23:33 | ED ---
Re-Evaluation - Re-Evaluation First Eval Re-Evaluation Time: 20:20 Change: Unchanged Comment: patient still experiencing SOB Course/Dx - Course Course Of Treatment: A 33 y/o female presents to [facility] with a chief complaint of SOB since 08/06/18 worsening on 08/09/18. The patient has a Hx of asthma but no prior intubations. She 20 mg prednisone daily prescribed by Dr. Hess. She has been having wheezing since 08/06/18 but it has not improved. She also reports a nonproductive cough. She denies fever, chills, erythema (eyes), sore throat, chest pain, abdominal pain, vomiting, nausea, dysuria, hematuria , myalgia, edema, rash and dizziness. At triage she rated her pain as a 0/10 in severity. The physical exam revealed inspiratory and expiratory wheezing. The plan is for IV steroids and back to back treatments of respiratory therapy. Oral steroids should be increased to 60 mg daily as she is already on inhaler steroids. She should have significant to near resolution of her symptoms before being allowed to go home due to her significant asthma history. The patient will be signed out to Dr. Hooper at 22:00 pending IV abx and respiratory therapy. We discussed patient care with Dr. Malin (Hospitalist), who agrees to come see the patient. Dr. Malin recommends discharging the patient. The patient will be discharged with a dx of asthma exacerbation. The patient is agreeable to this plan. - Diagnoses Provider Diagnoses: Asthma exacerbation - Provider Notifications Discussed Care Of Patient With: Margret Malin - Hospitalist Time Discussed With Above Provider: 23:32 - We discussed patient care with Dr. Malin (Hospitalist), who agrees to comes see the patient. Discharge - Sign-Out/Discharge Documenting (check all that apply): Patient Departure, Receiving Sign-Out Receiving patient FROM: Nadeem Oscar - Discharge Plan Condition: Stable Disposition: HOME Prescriptions: DOXYcycline CAP(*) [DOXYcycline 100MG CAP(*)] 100 mg PO BID #20 cap predniSONE TAB* [Deltasone 20 MG TAB*] 60 mg PO DAILY #30 tab Patient Education Materials: Asthma (ED) Referrals: Felice Chamberlain MD [Primary Care Provider] - - Attestation Statements Document Initiated by Yelenaibe: Yes Documenting Scribe: Keshia Day Provider For Whom Scribe is Documenting (Include Credential): Girish Hooper MD Scribe Attestation: Keshia Sy, scribed for Girish Hooper MD on 08/10/18 at 0115.
[2018-08-09 23:51] LABS: ABS Basophils 0 10^3/ul (0-0.2); ABS Eosinophils 0 10^3/ul (0-0.6); ABS Lymphocytes 0.5 10^3/ul (1.0-4.8); ABS Monocytes 0.1 10^3/ul (0-0.8); ABS Neutrophils 8.3 10^3/ul (1.5-7.7); ABS Nucleated RBC 0 10^3/ul; Eosinophil % 0.1 %; Hematocrit 36 % (35-47); Hemoglobin 11.8 g/dl (12.0-16.0); Lymphocyte % 5.5 %; Mean Corpuscular HGB Conc 32 g/dl (31-36); Mean Corpuscular Hemoglobin 26 pg (27-31); Mean Corpuscular Volume 80 fL (80-97); Mean Platelet Volume 8.3 fL (7.4-10.4); Nucleated Red Blood Cells % 0; Platelet Count 304 10^3/ul (150-450); Red Blood Count 4.55 10^6/ul (4.00-5.40); Red Cell Distribution Width 14 % (10.5-15); White Blood Count 8.9 10^3/ul (3.5-10.8)
[2018-08-10] MEDS ORDERED: NS 0.9% 50 ML* 50 ML ONE
[2018-08-10 00:08] LABS: Albumin 3.2 g/dL (3.2-5.2); Albumin/Globulin Ratio 0.9 (1-3); BUN/Creatinine Ratio 15.7 (8-20); Calcium 9.2 mg/dL (8.6-10.3); EGFR African American 96.4 (>60); EGFR Non-African American 79.7 (>60); Globulin 3.7 g/dL (2-4); Potassium 4.4 mmol/L (3.5-5.0); Total Bilirubin 0.3 mg/dL (0.2-1.0); Total Protein 6.9 g/dL (6.4-8.9)
[2018-08-10 00:15] LABS: HCG Pregnancy 0.85 mIU/mL
[2018-08-10 01:22] VITALS: BP 123/66
--- NOTE | 2018-08-10 01:52 | CONS ---
CC: Dr. Chamberlain; Dr. Tabor * CONSULTATION REPORT: DATE OF CONSULT: 08/10/18 PRIMARY CARE PROVIDER: Dr. Chamberlain. EDUCATION PROFESSOR: Dr. Tabor. REASON FOR CONSULT: Asthma exacerbation. HISTORY OF PRESENT ILLNESS: Jody Alfaro is a 33-year-old female with history of frequent hospitalizations for asthma exacerbations in the past including intubation in the past. Patient was hospitalized frequently in 2013 and had not been evaluated for asthma until 2017. Patient stated that 3 years she spent in one of the [facility] correctional facilities. She had a baby in 2017 and she had been doing reasonably well as an outpatient with her asthma until this season, where she developed asthma exacerbation. She initially was placed on prednisone at 50 mg daily for a few days and later on, she developed another exacerbation, and this time she was placed on prednisone 20 mg daily for the past 4 days. She still feels short of breath and with dry cough and she presented to the ED for evaluation. Here, she was treated with ceftriaxone , Solu-Medrol, and a dose of magnesium as well as a dose of nebulizer. At this point, she appears comfortable, not tachypneic. She has scant wheezes on evaluation. Dr. Hooper asked for Medicine to consult on this patient for possibility of admission. PAST MEDICAL HISTORY: 1. History of asthma with frequent exacerbations including need of intubation several years ago. 2. History of ADHD. 3. Status post cholecystectomy. 4. History of hernia repair. MEDICATIONS: Patient's current medications include: 1. Prednisone 20 mg daily. 2. Dulera 100/5 one puff b.i.d. 3. Adderall 30 mg b.i.d. 4. Albuterol nebulizers on a p.r.n. basis. 5. Albuterol inhaler on a p.r.n. basis. 6. Theophylline 450 mg b.i.d. ALLERGIES: Include CLINDAMYCIN and AVELOX. FAMILY HISTORY: Positive for mother with diabetes, father with history of prostate cancer and hypertension. SOCIAL HISTORY: Patient denies any tobacco, alcohol or drug use currently. She used to smoke marijuana couple of years ago. She lives with her boyfriend and their 1-year-old son. As for surrogate, she names her mother, Mishel. REVIEW OF SYSTEMS: Positive for dry cough. Positive for wheezing. Positive for shortness of breath. Negative for fevers, negative for chest pain. All the remaining 12 systems reviewed with the patient and were, otherwise, negative. PHYSICAL EXAM: Blood pressure of 138/74, heart rate of 110 and regular, respiratory rate 20, oxygen saturation 96% on room air, temperature of 97.2. General: Patient is a very pleasant 33-year-old female who is in no acute distress. Alert, awake, and oriented x3. Patient's BMI is 40. HEENT: Head: Atraumatic, normocephalic. Eyes: Pupils are equal, reactive to light and accommodation. Oropharynx with erythema of the pharynx. No tonsillar exudations noted. Neck: Supple. No JVD. No bruit bilaterally. Cardiovascular: Regular rate and rhythm. No murmur. Respiratory: Scant bibasilar wheezes noted. Abdomen: Soft, nontender. Bowel sounds present in all 4 quadrants. Extremities: There is no edema. Pulses are +2 bilaterally. No clubbing or cyanosis. On neuro evaluation, speech clear. Cranial nerves II through XII grossly intact. Motor strength is 5/5 bilaterally. DIAGNOSTIC STUDIES/LAB DATA: Laboratory data, none obtained. Portable chest x-ray read by myself prior to the official radiologist's report shows no acute cardiopulmonary abnormalities. ASSESSMENT AND PLAN: Patient appears to be in asthma exacerbation, currently appears to be mild, but I understand that patient was in significant bronchospasm when she arrived. She has a nebulizer machine at home and she is using it with albuterol. At this point, I would recommend a slow prednisone taper, starting with 60 mg daily, tapering every 4 days or so. Patient was recommended to see Dr. Tabor for evaluation when she is still on prednisone treatment. At this point, patient is comfortable, breathing on room air with sats of 96%, respiratory rate of 20 or below, with no evidence of significant bronchospasm. I do not see an indication for admission at this point. This was discussed with the patient, who agrees and she is going to be discharged home. It was also discussed with Dr. Hooper, the emergency department physician. TIME SPENT: Approximately 55 minutes were spent in consultation of this patient , more than half that time was spent [id number] with the patient during the interview and physical. [id number]/[facility] #: [id number] [facility]
== END 2018-08-10 01:18 | disposition home or self-care (01) ==
LOC: ED 21:07
DX: J45.901 Unspecified asthma with (acute) exacerbation (principal); Z88.1 Allergy status to other antibiotic agents
CPT/HCPCS: 36415; 71046; 80053; 84702; 85025; 96365; 96375; 99283; J0696; J2930; J3475; J7611

== ENCOUNTER 2018-11-26 16:27 | Emergency (ER) | payer MEDICARE ==
[2018-11-26] MEDS ORDERED: predniSONE TAB* 20 MG PO ONE (17:35)
[2018-11-26] MEDS ORDERED: Albuterol/Ipratropium NEB.SOL* Albuterol 2.5 MG/Ipratropium 0.5 MG 3 ML INH ONE (17:35)
[2018-11-26] MEDS ORDERED: Magnesium Sulfate 2 GM IV* 2 GM/50 ML BAG IVPB ONE (17:36)
[2018-11-26] MEDS ORDERED: DOXYcycline CAP(*) 100 MG PO ONE (17:37)
[2018-11-26 17:53] LABS: ABS Lymphocytes 0.7 10^3/ul (1.0-4.8); ABS Monocytes 0.2 10^3/ul (0-0.8); ABS Neutrophils 10.8 10^3/ul (1.5-7.7); Eosinophil % 0.2 %; Hematocrit 35 % (35-47); Hemoglobin 11.4 g/dL (12.0-16.0); Lymphocyte % 6.2 %; Mean Corpuscular HGB Conc 32 g/dL (31-36); Mean Corpuscular Hemoglobin 25 pg (27-31); Mean Corpuscular Volume 77 fL (80-97); Mean Platelet Volume 7.9 fL (7.4-10.4); Platelet Count 336 10^3/uL (150-450); Red Blood Count 4.61 10^6 /uL (3.70-4.87); Red Cell Distribution Width 16 % (10.5-15); White Blood Count 11.8 10^3/uL (3.5-10.8)
[2018-11-26 18:10] LABS: Albumin 3.3 g/dL (3.2-5.2); Albumin/Globulin Ratio 0.9 (1-3); BUN/Creatinine Ratio 17.1 (8-20); C Reactive Protein 15.6 mg/L (<8.01); Calcium 9.2 mg/dL (8.6-10.3); EGFR African American 106.7 (>60); EGFR Non-African American 88.2 (>60); Globulin 3.6 g/dL (2-4); Total Bilirubin 0.4 mg/dL (0.2-1.0); Total Protein 6.9 g/dL (6.4-8.9)
--- NOTE | 2018-11-26 18:40 | ED ---
Respiratory - HPI Summary HPI Summary: Patient complains of progressive shortness of breath 1 week, productive cough starting yesterday. Patient has inhalers, DuoNeb times at home, and has used them without significant relief. History of severe asthma, currently taking prednisone 40 mg daily. History of prior intubation for asthma exacerbation. Denies fever, sore throat, ODELL, CP, N/V/D, abdominal pain, change in urine, change in BM. - History of Current Complaint Chief Complaint: EDShortnessOfBreath Stated Complaint: SOB PER PT Time Seen by Provider: 11/26/18 17:24 Hx Obtained From: Patient Onset/Duration: Gradual Onset Current Severity: None Pain Intensity: 0 Character: Wheezing, Dyspnea on Exertion Sputum Amount: Moderate Sputum Color: Green Aggravating Factor(s): Exertion Alleviating Factor(s): Nothing Associated Signs and Symptoms: SOB - Allergy/Home Medications Allergies/Adverse Reactions: Allergies Allergy/AdvReac Type Severity Reaction Status Date / Time clindamycin Allergy Anaphylatic Verified 08/09/18 21:17 Shock moxifloxacin Allergy Anaphylatic Verified 08/09/18 21:17 Shock Home Medications: Home Medications Dextroamphetamine/Amphetamine [Dextroamp-Amphetamin 30 mg Tab] 30 mg PO BID [History Confirmed 11/26/18] Theophylline Anhydrous 450 mg PO BID 11/26/18 [History Confirmed 11/26/18] PMH/Surg Hx/FS Hx/Imm Hx Endocrine/Hematology History: Denies: Hx Anticoagulant Therapy, Hx Diabetes, Hx Thyroid Disease Cardiovascular History: Denies: Hx Hypertension - family hx of Respiratory History: Reports: Hx Asthma - Allergies/asthma, Hx Pneumonia, Hx Seasonal Allergies Denies: Hx Chronic Obstructive Pulmonary Disease (COPD) GI History: Denies: Hx Ulcer Musculoskeletal History: Reports: Hx Arthritis - left hand Sensory History: Reports: Hx Contacts or Glasses Opthamlomology History: Reports: Hx Contacts or Glasses Neurological History: Reports: Hx Headaches Denies: Hx Migraine, Hx Nerve Disease, Hx Seizures Psychiatric History: Reports: Hx Attention Deficit Hyperactivity Disorder, Hx Bipolar Disorder - Cancer History Hx Chemotherapy: No Hx Radiation Therapy: No Hx Palliative Cancer Treatment: No - Surgical History Surgery Procedure, Year, and Place: S/p cholecystectomy, 2004, [facility] in [place] Hx Anesthesia Reactions: No Infectious Disease History: No Infectious Disease History: Denies: Hx Clostridium Difficile, Hx Hepatitis, Hx Human Immunodeficiency Virus (HIV), Hx of Known/Suspected MRSA, Hx Shingles, Hx Tuberculosis, Hx Known/ Suspected VRE, Hx Known/Suspected VRSA, History Other Infectious Disease, Traveled Outside the [place] in Last 30 Days - Family History Known Family History: Positive: Hypertension, Diabetes Negative: Cardiac Disease - [place], Respiratory Disease, Blood Disorder - blood clots - Social History Alcohol Use: None Hx Substance Use: No Substance Use Type: Reports: None Substance Use Comment - Amount & Last Used: frequently Hx Tobacco Use: No Smoking Status (MU): Never Smoked Tobacco Review of Systems Constitutional: Negative Eyes: Negative ENT: Negative Cardiovascular: Negative Positive: Shortness Of Breath, Cough Gastrointestinal: Negative Genitourinary: Negative Musculoskeletal: Negative Skin: Negative Neurological: Negative Psychological: Normal All Other Systems Reviewed And Are Negative: Yes Physical Exam - Summary Physical Exam Summary: Wheezing right-sided lungs. No obvious distress. Abdomen soft nontender. RRR. Triage Information Reviewed: Yes Vital Signs On Initial Exam: Initial Vitals Temp Pulse Resp BP Pulse Ox 98.7 F 103 18 109/88 97 11/26/18 16:49 11/26/18 16:49 11/26/18 16:49 11/26/18 16:49 11/26/18 16:49 Vital Signs Reviewed: Yes Appearance: Positive: Well-Appearing Skin: Positive: Warm Head/Face: Positive: Normal Head/Face Inspection Eyes: Positive: Normal ENT: Positive: Normal ENT inspection Neck: Positive: Supple Respiratory/Lung Sounds: Positive: Wheezes Cardiovascular: Positive: Normal Abdomen Description: Positive: Nontender Musculoskeletal: Positive: Normal Neurological: Positive: Normal Psychiatric: Positive: Normal AVPU Assessment: Alert - [place] Coma Scale Best Eye Response: 4 - Spontaneous Best Motor Response: 6 - Obeys Commands Best Verbal Response: 5 - Oriented Coma Scale Total: 15 Diagnostics - Vital Signs Vital Signs Temp Pulse Resp BP Pulse Ox 11/26/18 17:49 93 14 98 11/26/18 17:34 104 96 11/26/18 17:33 103 119/88 96 11/26/18 16:49 98.7 F 103 18 109/88 97 - Laboratory Lab Results: Lab Results 11/26/18 11/26/18 Range/Units 17:47 17:47 WBC 11.8 H (3.5-10.8) 10^3/uL RBC 4.61 (3.70-4.87) 10^6 /uL Hgb 11.4 L (12.0-16.0) g/dL Hct 35 (35-47) % MCV 77 L (80-97) fL MCH 25 L (27-31) pg MCHC 32 (31-36) g/dL RDW 16 H (10.5-15) % Plt Count 336 (150-450) 10^3/uL MPV 7.9 (7.4-10.4) fL Neut % (Auto) 91.1 % Lymph % (Auto) 6.2 % [place] % (Auto) 2.1 % Eos % (Auto) 0.2 % Baso % (Auto) 0.4 % Absolute Neuts (auto) 10.8 H (1.5-7.7) 10^3/ul Absolute Lymphs (auto) 0.7 L (1.0-4.8) 10^3/ul Absolute Monos (auto) 0.2 (0-0.8) 10^3/ul Absolute Eos (auto) 0.0 (0-0.6) 10^3/ul Absolute Basos (auto) 0.0 (0-0.2) 10^3/ul Absolute Nucleated RBC 0.0 10^3/ul Nucleated RBC % 0.0 Sodium 137 (135-145) mmol/L Potassium 4.0 (3.5-5.0) mmol/L Chloride 108 (101-111) mmol/L Carbon Dioxide 23 (22-32) mmol/L Anion Gap 6 (2-11) mmol/L BUN 13 (6-24) mg/dL Creatinine 0.76 (0.51-0.95) mg/dL Est GFR ( Amer) 106.7 (>60) Est GFR (Non-Af Amer) 88.2 (>60) BUN/Creatinine Ratio 17.1 (8-20) Glucose 135 H (70-100) mg/dL Calcium 9.2 (8.6-10.3) mg/dL Total Bilirubin 0.40 (0.2-1.0) mg/dL AST 13 (13-39) U/L ALT 17 (7-52) U/L Alkaline Phosphatase 90 (34-104) U/L C-Reactive Protein 15.60 H (<8.01) mg/L Total Protein 6.9 (6.4-8.9) g/dL Albumin 3.3 (3.2-5.2) g/dL Globulin 3.6 (2-4) g/dL Albumin/Globulin Ratio 0.9 L (1-3) Result Diagrams: 11/26/18 17:47 11/26/18 17:47 Lab Statement: Any lab studies that have been ordered have been reviewed, and results considered in the medical decision making process. Disposition - Course Course Of Treatment: Patient complains of progressive shortness of breath 1 week, productive cough starting yesterday. Patient has inhalers, DuoNeb times at home, and has used them without significant relief. History of severe asthma , currently taking prednisone 40 mg daily. History of prior intubation for asthma exacerbation. Denies fever, sore throat, ODELL, CP, N/V/D, abdominal pain, change in urine, change in BM. Physical exam:Wheezing right-sided lungs. No obvious distress. Abdomen soft nontender. RRR. Patient tachycardic, vital signs otherwise unremarkable. WBC 11.8. CRP 15. Labs otherwise unremarkable. Chest x-ray negative for acute process. Patient lung sounds and symptoms improved with DuoNeb here in the ED. Patient given additional prednisone 20 mg on top of her daily 40 mg. 2 mg of magnesium sulfate IV. Started on doxycycline, Rx for same as patient states she has a history of severe respiratory infections. Patient states she feels much better. Inhaler and DuoNeb nebs at home. Advised patient continue taking 40 mg of prednisone daily as she currently does. Return for any new or worsening symptoms. Patient understands and approves of plan. - Diagnoses Provider Diagnoses: Respiratory infection, Asthma exacerbation Discharge - Sign-Out/Discharge Documenting (check all that apply): Patient Departure Patient Received Moderate/Deep Sedation with Procedure: No - Discharge Plan Condition: Stable Disposition: HOME Prescriptions: DOXYcycline CAP(*) [DOXYcycline 100MG CAP(*)] 100 mg PO BID 10 Days #20 cap Patient Education Materials: Asthma (ED), Upper Respiratory Infection (ED) Referrals: Felice Chamberlain MD [Primary Care Provider] - Additional Instructions: Take antibiotics as directed. Continue to take prednisone 40 mg daily as you have prescribed. Use your inhaler and nebulizer as directed. Follow-up with primary care. Return to the ED for any new or worsening symptoms. - Billing Disposition and Condition Condition: STABLE Disposition: Home
[2018-11-26 20:03] VITALS: BP 134/78
== END 2018-11-26 20:02 | disposition home or self-care (01) ==
LOC: ED 16:27
DX: J98.8 Other specified respiratory disorders (principal); J45.901 Unspecified asthma with (acute) exacerbation; R00.0 Tachycardia, unspecified; F90.9 Attention-deficit hyperactivity disorder, unspecified type; Z88.1 Allergy status to other antibiotic agents
CPT/HCPCS: 36415; 71046; 80053; 85025; 86140; 96365; 96366; 99284; A9270-GY; J3475; J7512